=== PATIENT | female | born 1995 | race Hispanic/Latino ===

== ENCOUNTER 2019-02-07 11:43 | Emergency (ER) | payer OTHER ==
[2019-02-07 12:37] LABS: APPEARANCE,URINE Clear (CLEAR); BILIRUBIN,URINE Negative (NEGATIVE); COLOR,URINE Yellow (YELLOW); GLUCOSE, URINE (UA) Negative (NEGATIVE); KETONES,URINE Negative (NEGATIVE); LEUKOCYTE ESTERASE ,URINE Trace (NEGATIVE); NITRATE,URINE Positive (NEGATIVE); OCCULT BLOOD,URINE Moderate (NEGATIVE); PH,URINE 6.5 (5.0-8.0); PROTEIN,URINE Negative (NEGATIVE)
[2019-02-07 12:40] LABS: HCG,QUAL RESULT NEGATIVE (NEGATIVE)
[2019-02-07 12:53] LABS: MUCUS,URINE Rare LPF (None Seen); SQUAMOUS EPITHELIAL CELL,UR Few /HPF (0-2)
[2019-02-07 12:55] LABS: WBC,URINE 0-1 /HPF (0-1)
[2019-02-07 12:56] LABS: BACTERIA,URINE Moderate /HPF (None Seen); RBC,URINE 0-1 /HPF (0-1)
== END 2019-02-07 12:56 | disposition home or self-care (01) ==
LOC: EDH 11:43
DX: N39.0 Urinary tract infection, site not specified (principal); Z87.442 Personal history of urinary calculi; Z90.49 Acquired absence of other specified parts of digestive tract
CPT/HCPCS: 76856; 81001; 81025

== ENCOUNTER 2019-10-13 19:34 | Emergency (ER) | payer OTHER | END 2019-10-13 21:38 | disposition home or self-care (01) | LOC: EDH 19:34 | DX: H66.92 Otitis media, unspecified, left ear (principal); R05 Cough; N89.8 Other specified noninflammatory disorders of vagina; Z87.442 Personal history of urinary calculi; Z90.49 Acquired absence of other specified parts of digestive tract ==